=== PATIENT | male | born 1995 | race Caucasian/White ===

== ENCOUNTER 2017-05-13 15:51 | Emergency (ER) | payer OTHER ==
[~2017-05-13] VITALS: Ht 185.4 cm; Wt 118.2 kg
[~2017-05-13 15:51] MED LIST: CIPR-278 PO; HYDR-3965 PO; METR500 PO; NOCURR
[2017-05-13] MEDS ORDERED: DIAZEPAM 5 MG TABLET PO ONE (17:00)
[2017-05-13 19:10] VITALS: BP 128/81
== END 2017-05-13 19:12 | disposition home or self-care (01) ==
LOC: EMS 15:55
DX: F41.9 Anxiety disorder, unspecified (principal); R00.2 Palpitations
CPT/HCPCS: 93005; 99284

== ENCOUNTER 2018-07-28 10:38 | Emergency (ER) | payer OTHER ==
[~2018-07-28] VITALS: Ht 175.3 cm; Wt 122.7 kg
[~2018-07-28 10:38] MED LIST changes: -CIPR-278 PO; -HYDR-3965 PO; -METR500 PO
[2018-07-28 12:51] LABS: BASOPHILS % (AUTO) 0.7 % (0.0-2.0); EOSINOPHILS % (AUTO) 0 % (1.0-6.0); HEMATOCRIT 45.7 % (41-53); HEMOGLOBIN 15.4 g/dL (13.5-17.5); LYMPHOCYTES # (AUTO) 1.6 K/uL (1.0-4.8); LYMPHOCYTES % (AUTO) 10.5 % (22.0-44.0); MEAN CORPUSCULAR HEMOGLOBIN 28.8 pg (26.0-34.0); MEAN CORPUSCULAR HGB CONC 33.8 G/dL (31.0-37.0); MEAN CORPUSCULAR VOLUME 85 fL (80-100); MONOCYTES # (AUTO) 0.9 K/uL (0.1-1.0); NEUTROPHILS # (AUTO) 12.6 K/uL (1.8-7.7); NEUTROPHILS % (AUTO) 82.8 % (40.0-70.0); PLATELET COUNT (AUTO) 318 K/uL (150-450); RED BLOOD CELL COUNT(AUTO) 5.37 MIL/uL (4.50-5.90)
[2018-07-28 12:55] LABS: ANION GAP 13 mmol/L (8-16); CALCIUM, TOTAL 9.6 mg/dL (8.8-10.5); CARBON DIOXIDE 27 mmol/L (22-29); CHLORIDE 101 mmol/L (98-107); CREATININE 0.92 mg/dL (0.60-1.30); GLOMERULAR FILTR. RATE CALC > 60 mL/min (>60); GLUCOSE,RANDOM 103 mg/dL (70-110); POTASSIUM 3.7 mmol/L (3.5-5.1); SODIUM SERUM 141 mmol/L (136-145); UREA NITROGEN, BLOOD 11 mg/dL (7-18)
[2018-07-28] MEDS ORDERED: LORazepam 2 MG TABLET PO ONE (13:00)
[2018-07-28 13:02] LABS: ALANINE AMINOTRANSFERASE 77 U/L (12-78); ALBUMIN 4.7 g/dL (3.4-5.0); ALKALINE PHOSPHATASE 78 U/L (46-116); ASPARTATE AMINOTRANSFERASE 25 U/L (15-37); BILIRUBIN,TOTAL 1.3 mg/dL (0.1-1.0)
[2018-07-28 14:25] VITALS: BP 132/84
== END 2018-07-28 14:25 | disposition home or self-care (01) ==
LOC: EMS 10:39
DX: R07.89 Other chest pain (principal); D72.829 Elevated white blood cell count, unspecified; F14.10 Cocaine abuse, uncomplicated
CPT/HCPCS: 93005